=== PATIENT | female | born 1935 | race Caucasian/White ===

== ENCOUNTER 2016-08-05 07:01 | Inpatient (IN) | payer MEDICARE ==
[2016-08-01 08:23] VITALS: BP 157/77
[~2016-08-05] VITALS: Ht 165.1 cm; Wt 80.4 kg
[~2016-08-05 07:01] MED LIST: APIX5TAB PO; ATOR40TA78 PO; BACITRACIN 50,000 UNIT ONE; BUPIVACAINE/PF 0.5% ONE; DILT240C61 PO; EPINEPHRINE 1 MG/ML, 1ML ONE; FLEC50TA25 PO; GABA300C10 PO; METH4TAB6 PO; METO50TA82 PO; NARA2.5T4 PO; OXYC1TAB7 PO; PROM25TA10 PO; SUMA25TA3 PO; THROMBIN 5,000 UNIT VIAL TP ONE
[2016-08-05] MEDS ORDERED: BACITRACIN OINT 500U/GM, 15 GM ONE (07:17)
[2016-08-05] MEDS ORDERED: LACTATED RINGERS 1,000 ML IV SCH (07:57)
[2016-08-05] MEDS ORDERED: PNEUMOCOCCAL 23 VACCINE IM-VACC ONE (08:00)
[2016-08-05] MEDS ORDERED: LIDOCAINE 1%, 2ML SQ PRN (08:00)
[2016-08-05] MEDS ORDERED: FENTANYL PF 250 MCG/5ML ONE (10:11)
[2016-08-05] MEDS ORDERED: PROPOFOL 10 MG/ML, 50ML ONE (10:18)
[2016-08-05] MEDS ORDERED: CEFAZOLIN 1,000 MG ONE (10:18)
[2016-08-05] MEDS ORDERED: LIDOCAINE 1%, 10ML ONE (10:18)
[2016-08-05] MEDS ORDERED: ROCURONIUM 10 MG/ML ONE (10:18)
[2016-08-05] MEDS ORDERED: PHENYLEPHRINE 10 MG/ML ONE (10:18)
[2016-08-05] MEDS ORDERED: PROPOFOL 10 MG/ML, 20ML ONE (10:18)
[2016-08-05] MEDS ORDERED: DIPHENHYDRAMINE 50 MG CAPSULE PO PRN (12:30)
[2016-08-05] MEDS ORDERED: HYDROmorphone PCA 30 MG/30 ML IV PRN (12:30)
[2016-08-05] MEDS ORDERED: HYDROmorphone 2MG TABLET PO PRN (12:30)
[2016-08-05] MEDS ORDERED: HYDROcodone/APAP 5/325 TABLET PO PRN (12:30)
[2016-08-05] MEDS ORDERED: SENNA/DOCUSATE TABLET PO PRN (12:30)
[2016-08-05] MEDS ORDERED: BISACODYL 10 MG SUPP PR PRN (12:30)
[2016-08-05] MEDS ORDERED: NS + 20MEQ KCL 1,000 ML IV SCH (12:30)
[2016-08-05] MEDS ORDERED: ONDANSETRON 2MG/ML, 2ML IVPush PRN ×2 (12:30→13:00)
[2016-08-05] MEDS ORDERED: SUMATRIPTAN 25 MG TABLET PO PRN (12:30)
[2016-08-05] MEDS ORDERED: PROMETHAZINE 25 MG/ML, 1ML IM PRN (12:30)
[2016-08-05] MEDS ORDERED: LABETALOL 5MG/ML, 20ML IVPush PRN (12:30)
[2016-08-05] MEDS ORDERED: PHARMACY MAY ADJ FOR RENAL FX MC PRN (12:30)
[2016-08-05] MEDS ORDERED: NARATRIPTAN HCL 2.5 MG PO PRN (12:30)
[2016-08-05] MEDS ORDERED: HYDROmorphone PCA 30 MG/30 ML ONE (12:31)
[2016-08-05] MEDS ORDERED: HYDROmorphone 1 MG/ML, 1ML ONE (12:43)
[2016-08-05] MEDS ORDERED: OXYcodone 5 MG/5 ML ORAL.SOL UDC ONE (12:43)
[2016-08-05] MEDS: HYDROmorphone 1 MG/ML, 1ML IV PRN ×2 (12:45→12:55)
[2016-08-05] MEDS ORDERED: CYCLOBENZAPRINE 10 MG TABLET ONE (12:53)
[2016-08-05] MEDS: CYCLOBENZAPRINE 10 MG TABLET PO PRN ×2 (12:57→23:54)
[2016-08-05] MEDS ORDERED: hydrALAzine 20 MG/ML, 1ML IV PRN (13:00)
[2016-08-05] MEDS ORDERED: OXYcodone 5 MG/5 ML ORAL.SOL UDC PO PRN (13:00)
[2016-08-05] MEDS ORDERED: FENTANYL PF 100 MCG/2ML IV PRN (13:00)
[2016-08-05] MEDS ORDERED: LABETALOL 5MG/ML, 20ML IV PRN (13:00)
[2016-08-05] MEDS: GABAPENTIN 300 MG CAPSULE PO SCH ×2 (16:00→20:48)
[2016-08-05] MEDS: CEFAZOLIN PMX 1GM/50ML 50 ML IVPB SCH (17:55)
[2016-08-05] MEDS: ATORVASTATIN 40 MG TABLET PO SCH (20:48)
[2016-08-05] MEDS: FLECAINIDE 50MG TABLET PO SCH (20:49)
[2016-08-05] MEDS: SODIUM CHLORIDE FLUSH 10ML SYR IVF SCH (20:50)
[2016-08-05] MEDS: METOPROLOL TARTRATE 50 MG TABLET PO SCH (20:50)
[2016-08-05 21:10] VITALS: BP 98/62
[2016-08-06] VITALS: BP 113/70
[2016-08-06] MEDS ORDERED: SODIUM CHLORIDE 0.9%, 500ML IVBOLUS ONE (00:30)
[2016-08-06] MEDS: CEFAZOLIN PMX 1GM/50ML 50 ML IVPB SCH (01:53)
[2016-08-06] MEDS: NS + 20MEQ KCL 1,000 ML IV SCH ×2 (05:56→22:30)
[2016-08-06 06:50] VITALS: BP 109/71
[2016-08-06] MEDS: SODIUM CHLORIDE FLUSH 10ML SYR IVF SCH ×2 (07:15→20:59)
[2016-08-06] MEDS: GABAPENTIN 300 MG CAPSULE PO SCH ×3 (08:52→20:57)
[2016-08-06] MEDS: FLECAINIDE 50MG TABLET PO SCH ×2 (08:52→20:57)
[2016-08-06] MEDS: OXYcodone/APAP 5/325MG TABLET PO PRN ×3 (08:56→19:17)
[2016-08-06] MEDS: DILTIAZEM HCL 240 MG PO SCH (09:00)
[2016-08-06] MEDS: SENNA/DOCUSATE TABLET PO SCH (13:15)
[2016-08-06 13:42] VITALS: BP 124/74
[2016-08-06 19:11] VITALS: BP 150/80
[2016-08-06] MEDS: ATORVASTATIN 40 MG TABLET PO SCH (20:56)
[2016-08-06] MEDS: METOPROLOL TARTRATE 50 MG TABLET PO SCH (20:57)
[2016-08-07] MEDS: OXYcodone/APAP 5/325MG TABLET PO PRN ×5 (00:01→21:51)
[2016-08-07 02:39] VITALS: BP 106/67
[2016-08-07 06:55] VITALS: BP 124/77
[2016-08-07] MEDS: NS + 20MEQ KCL 1,000 ML IV SCH ×2 (08:30→18:30)
[2016-08-07] MEDS: SENNA/DOCUSATE TABLET PO SCH (08:50)
[2016-08-07] MEDS: DILTIAZEM HCL 240 MG PO SCH (08:51)
[2016-08-07] MEDS: FLECAINIDE 50MG TABLET PO SCH ×2 (08:51→21:52)
[2016-08-07] MEDS: GABAPENTIN 300 MG CAPSULE PO SCH ×3 (08:51→21:51)
[2016-08-07] MEDS: SODIUM CHLORIDE FLUSH 10ML SYR IVF SCH ×2 (11:25→21:52)
[2016-08-07 13:56] VITALS: BP 91/52
[2016-08-07 20:01] VITALS: BP 113/66
[2016-08-07] MEDS: CYCLOBENZAPRINE 10 MG TABLET PO PRN (21:51)
[2016-08-07] MEDS: METOPROLOL TARTRATE 50 MG TABLET PO SCH (21:51)
[2016-08-07] MEDS: ATORVASTATIN 40 MG TABLET PO SCH (21:51)
[2016-08-08] VITALS (9 sets, daily range): BP systolic 74–126; BP diastolic 50–77
[2016-08-08] MEDS: NS + 20MEQ KCL 1,000 ML IV SCH ×2 (04:30→14:24)
[2016-08-08] MEDS: OXYcodone/APAP 5/325MG TABLET PO PRN ×5 (04:41→22:13)
[2016-08-08] MEDS: MAGNESIUM HYDROXIDE 8%, 30ML UDC PO PRN (06:48)
[2016-08-08] MEDS ORDERED: DILTIAZEM 240 MG CAP.ER.24H PO SCH (09:00)
[2016-08-08] MEDS: SENNA/DOCUSATE TABLET PO SCH (09:29)
[2016-08-08] MEDS: GABAPENTIN 300 MG CAPSULE PO SCH ×3 (09:29→20:18)
[2016-08-08] MEDS: SODIUM CHLORIDE FLUSH 10ML SYR IVF SCH ×2 (09:29→20:26)
[2016-08-08] MEDS: FLECAINIDE 50MG TABLET PO SCH ×2 (09:29→20:19)
[2016-08-08] MEDS: DILTIAZEM 240 MG CAP.ER.24H PO SCH (09:52)
[2016-08-08] MEDS ORDERED: SODIUM CHLORIDE 0.9% 1,000ML IVBOLUS ONE (10:00)
[2016-08-08] MEDS: SODIUM CHLORIDE 0.9% 1,000 ML IV SCH ×2 (11:30→20:26)
[2016-08-08] MEDS ORDERED: DIGOXIN 0.25 MG/ML, 2ML IVPush ONE (11:30)
[2016-08-08 12:28] LABS: BLOOD UREA NITROGEN 10 mg/dL (7-18)
[2016-08-08 12:42] LABS: ASPARTATE AMINO TRANSFERASE 19 U/L (15-37)
[2016-08-08] MEDS: ATORVASTATIN 40 MG TABLET PO SCH (20:18)
[2016-08-08] MEDS: METOPROLOL TARTRATE 50 MG TABLET PO SCH (20:19)
[2016-08-09] MEDS: NS + 20MEQ KCL 1,000 ML IV SCH ×2 (00:30→10:30)
[2016-08-09 03:46] VITALS: BP 110/69
[2016-08-09] MEDS: OXYcodone/APAP 5/325MG TABLET PO PRN ×4 (03:47→22:28)
[2016-08-09] MEDS: SODIUM CHLORIDE 0.9% 1,000 ML IV SCH (06:34)
[2016-08-09 07:08] VITALS: BP_SYST 114; BP_SYST 144; BP_DIAS 69; BP_DIAS 85
[2016-08-09] MEDS: DILTIAZEM 240 MG CAP.ER.24H PO SCH (08:43)
[2016-08-09] MEDS: FLECAINIDE 50MG TABLET PO SCH ×2 (08:43→21:12)
[2016-08-09] MEDS: SENNA/DOCUSATE TABLET PO SCH (08:43)
[2016-08-09] MEDS: SODIUM CHLORIDE FLUSH 10ML SYR IVF SCH ×2 (08:43→21:12)
[2016-08-09] MEDS: GABAPENTIN 300 MG CAPSULE PO SCH ×3 (08:44→21:12)
[2016-08-09] MEDS: MAGNESIUM HYDROXIDE 8%, 30ML UDC PO PRN (08:44)
[2016-08-09] MEDS ORDERED: METOPROLOL TARTRATE 50 MG TABLET PO SCH (10:30)
[2016-08-09 14:00] VITALS: BP 100/55
[2016-08-09 18:22] VITALS: BP 114/73
[2016-08-09] MEDS: METOPROLOL SUCCINATE 50 MG TAB.ER.24H PO SCH (21:12)
[2016-08-09] MEDS: ATORVASTATIN 40 MG TABLET PO SCH (21:12)
[2016-08-09 21:13] VITALS: BP 109/65
[2016-08-10 01:35] VITALS: BP 115/58
[2016-08-10] MEDS: OXYcodone/APAP 5/325MG TABLET PO PRN ×3 (05:53→22:15)
[2016-08-10] MEDS: GABAPENTIN 300 MG CAPSULE PO SCH ×3 (08:07→22:16)
[2016-08-10] MEDS: FLECAINIDE 50MG TABLET PO SCH ×2 (08:07→22:16)
[2016-08-10] MEDS: SENNA/DOCUSATE TABLET PO SCH (08:08)
[2016-08-10] MEDS: DILTIAZEM 240 MG CAP.ER.24H PO SCH (08:08)
[2016-08-10] MEDS: SODIUM CHLORIDE FLUSH 10ML SYR IVF SCH ×2 (08:08→22:16)
[2016-08-10 08:09] VITALS: BP 108/77
[2016-08-10 14:16] VITALS: BP 122/74
[2016-08-10] MEDS ORDERED: OXYcodone/APAP 5/325MG TABLET PO ONE (19:30)
[2016-08-10 21:07] VITALS: BP 112/70
[2016-08-10] MEDS: METOPROLOL SUCCINATE 50 MG TAB.ER.24H PO SCH (22:16)
[2016-08-10] MEDS: ATORVASTATIN 40 MG TABLET PO SCH (22:16)
[2016-08-11 03:45] VITALS: BP 107/73
[2016-08-11] MEDS: OXYcodone/APAP 5/325MG TABLET PO PRN ×3 (04:29→20:00)
[2016-08-11 07:02] VITALS: BP 130/80
[2016-08-11] MEDS ORDERED: DILTIAZEM 60 MG TABLET PO ONE (07:30)
[2016-08-11] MEDS: GABAPENTIN 300 MG CAPSULE PO SCH ×3 (08:10→19:58)
[2016-08-11] MEDS: SENNA/DOCUSATE TABLET PO SCH (08:33)
[2016-08-11] MEDS: DILTIAZEM 300 MG CAP.ER.24H PO SCH (08:33)
[2016-08-11] MEDS: FLECAINIDE 50MG TABLET PO SCH ×2 (08:35→21:49)
[2016-08-11] MEDS: SODIUM CHLORIDE FLUSH 10ML SYR IVF SCH ×2 (08:35→19:58)
[2016-08-11 13:37] LABS: BLOOD UREA NITROGEN 13 mg/dL (7-18)
[2016-08-11 14:01] VITALS: BP 95/57
[2016-08-11 19:23] VITALS: BP 102/57
[2016-08-11] MEDS: ATORVASTATIN 40 MG TABLET PO SCH (19:58)
[2016-08-11] MEDS: METOPROLOL SUCCINATE 50 MG TAB.ER.24H PO SCH (19:58)
[2016-08-12 02:23] VITALS: BP 108/63
[2016-08-12] MEDS: OXYcodone/APAP 5/325MG TABLET PO PRN ×2 (03:13→09:48)
[2016-08-12 06:37] VITALS: BP 121/82
[2016-08-12] MEDS ORDERED: METO-93 PO (07:48)
[2016-08-12] MEDS ORDERED: CYCL-259 PO (07:48)
[2016-08-12] MEDS ORDERED: DILT300C2 PO (07:48)
[2016-08-12] MEDS ORDERED: APIXABAN 5 MG TABLET PO SCH (09:00)
[2016-08-12] MEDS: DILTIAZEM 300 MG CAP.ER.24H PO SCH (09:47)
[2016-08-12] MEDS: SODIUM CHLORIDE FLUSH 10ML SYR IVF SCH (09:47)
[2016-08-12] MEDS: FLECAINIDE 50MG TABLET PO SCH (09:47)
[2016-08-12] MEDS: SENNA/DOCUSATE TABLET PO SCH (09:47)
[2016-08-12] MEDS: GABAPENTIN 300 MG CAPSULE PO SCH (09:48)
[2016-08-12] MEDS: CYCLOBENZAPRINE 10 MG TABLET PO PRN (10:49)
== END 2016-08-12 17:24 | DRG 519 ==
LOC: OUT 07:01 → 4NOR 13:58 → OUT 23:12 → 5SO 08-08 10:32
PROVIDERS: ADMIT Neurological Surgery; ATTEND Neurological Surgery
PROC: 0SB20ZZ Excision of Lumbar Vertebral Disc, Open Approach (ICD-10-PCS; 2016-08-05)
PROC: 01NB0ZZ Release Lumbar Nerve, Open Approach (ICD-10-PCS; principal; 2016-08-05 10:00)
DX: M48.06 Spinal stenosis, lumbar region (principal); D68.69 Other thrombophilia; M51.16 Intervertebral disc disorders with radiculopathy, lumbar region; I48.0 Paroxysmal atrial fibrillation; E78.5 Hyperlipidemia, unspecified; G43.909 Migraine, unspecified, not intractable, without status migrainosus; D64.9 Anemia, unspecified; G47.30 Sleep apnea, unspecified; I11.9 Hypertensive heart disease without heart failure; Z79.01 Long term (current) use of anticoagulants; Z82.49 Family history of ischemic heart disease and other diseases of the circulatory system; Z87.891 Personal history of nicotine dependence; Z28.21 Immunization not carried out because of patient refusal
CPT/HCPCS: 36415; 72100; 80048; 80053; 83735; 84439; 84443; 85025; 93005; J0171; J0690; J1170; J2704; J3010; J3480; J3490; J1160; J2370; J7030; J7040